=== PATIENT | male | born 1965 | race African-American/Black ===

== ENCOUNTER 2018-09-10 21:53 | Emergency (ER) | payer SELFPAY ==
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
== END 2018-09-10 23:40 | disposition home or self-care (01) ==
LOC: MW.ED 21:53
DX: M54.9 Dorsalgia, unspecified (principal); M54.2 Cervicalgia; R21 Rash and other nonspecific skin eruption; Z88.8 Allergy status to other drugs, medicaments and biological substances; V89.2XXA Person injured in unspecified motor-vehicle accident, traffic, initial encounter
CPT/HCPCS: 72040; 72040-26; 72100; 72100-26; 99283-25

== ENCOUNTER 2018-09-24 18:05 | Emergency (ER) | payer SELFPAY ==
--- NOTE | 2018-09-24 18:37 | EDM.PDOC ---
ED HPI GENERAL MEDICAL PROBLEM - General Chief Complaint: Skin Complaint Stated Complaint: ALLERGIC REACTION TO MEDICATION Time Seen by Provider: 09/24/18 18:25 Source of Information: Reports: Patient History Limitations: Reports: No Limitations - History of Present Illness INITIAL COMMENTS - FREE TEXT/NARRATIVE: HISTORY AND PHYSICAL: History of present illness: Patient is a 53-year-old male who presents to the emergency room with complaints of itching sensation to his scalp and bilateral forearms. He does have a few raised flesh-colored bumps which do not appear erythematous or infectious. Patient states he has not had any causative identifying factors or allergen exposure. Was seen in our emergency room on 09/10/18 for a different primary cause, but mentioned at that time he did have a rash. He was given a Medrol Dosepak. Patient completed this medication and felt that his arms had improved although still has itching to his scalp Review of systems: As per history of present illness and below otherwise all systems reviewed and negative. Past medical history: As per history of present illness and as reviewed below otherwise noncontributory. Surgical history: As per history of present illness and as reviewed below otherwise noncontributory. Social history: See social history for further information Family history: As per history of present illness and as reviewed below otherwise noncontributory. Physical exam: General: Well-developed and well-nourished 53-year-old -[place] male. Alert and oriented. Nontoxic appearing and in no acute distress. HEENT: Atraumatic, normocephalic, pupils equal and reactive bilaterally, negative for conjunctival pallor or scleral icterus, mucous membranes moist, TMs normal bilaterally, throat clear, neck supple, nontender, trachea midline. No drooling or trismus noted. No meningeal signs. No hot potato voice noted. Lungs: Clear to auscultation, breath sounds equal bilaterally, chest nontender. Heart: S1S2, regular rate and rhythm without overt murmur Abdomen: Soft, nondistended, nontender. Negative for masses. Negative for costovertebral tenderness. Skin: A few scattered raised flesh-colored bumps to his scalp. Superficial scratch king to bilateral forearms. Otherwise skin is intact, warm, dry. No lesions or rashes noted. Extremities: Atraumatic, moves all extremities per self without difficulty or deficits. Neurovascular unremarkable. Neuro: Awake, alert, oriented. Cranial nerves II through XII unremarkable. Cerebellum unremarkable. Motor and sensory unremarkable throughout. Exam nonfocal. Notes: Skin does not appear to be infectious or systemic. States this is been ongoing for several weeks. Use the Medrol Dosepak which improved his symptoms to his arms but continues to have itching sensation to his scalp. We discussed the need for follow-up care with dermatology or primary care for further evaluation , management and possible skin scraping/biopsy if warrented. Supportive care measures were reviewed and discussed. Voices understanding and is agreeable to plan of care. Denies any further questions or concerns at this time. Diagnostics: None Therapeutics: None Prescription: Atarax Impression: Atopic dermatitis Plan: 1. Please follow-up with your primary care provider or utility person as we discussed. 2. Use prescription as needed 3. Return to the ED as needed and as discussed. Definitive disposition and diagnosis as appropriate pending reevaluation and review of above. - Related Data Allergies Allergy/AdvReac Type Severity Reaction Status Date / Time naproxen sodium [From Aleve] Allergy Rash Verified 09/24/18 18:19 Home Meds: Home Meds hydrOXYzine pamoate [Vistaril] 25 mg PO Q8H PRN #20 cap 09/24/18 [Rx] Past Medical History - Past Health History Medical/Surgical History: Denies Medical/Surgical History Social & Family History - Family History Family Medical History: Noncontributory - Tobacco Use Smoking Status *Q: Never Smoker - Caffeine Use Caffeine Use: Reports: None - Recreational Drug Use Recreational Drug Use: No ED ROS GENERAL - Review of Systems Review Of Systems: ROS reveals no pertinent complaints other than HPI. ED EXAM, SKIN/RASH Exam: See Below (See dictation) Course - Vital Signs Last Recorded V/S: Last Vital Signs Temp 97.3 F 09/24/18 18:18 Pulse 86 09/24/18 18:18 Resp 18 09/24/18 18:18 BP 117/72 09/24/18 18:18 Pulse Ox 97 09/24/18 18:18 Departure - Departure Time of Disposition: 18:37 Disposition: Home, Self-Care 01 Clinical Impression: Atopic dermatitis Qualifiers: Atopic dermatitis type: unspecified Qualified Code(s): L20.9 - Atopic dermatitis, unspecified - Discharge Information Prescriptions: hydrOXYzine pamoate [Vistaril] 25 mg PO Q8H PRN #20 cap PRN Reason: Itching Instructions: Atopic Dermatitis Referrals: PCP,None [Primary Care Provider] - Forms: ED Department Discharge Additional Instructions: The following information is given to patients seen in the emergency department who are being discharged to home. This information is to outline your options for follow-up care. We provide all patients seen in our emergency department with a follow-up referral. The need for follow-up, as well as the timing and circumstances, are variable depending upon the specifics of your emergency department visit. If you don't have a primary care physician on staff, we will provide you with a referral. We always advise you to contact your personal physician following an emergency department visit to inform them of the circumstance of the visit and for follow-up with them and/or the need for any referrals to a consulting specialist. The emergency department will also refer you to a specialist when appropriate. This referral assures that you have the opportunity for follow-up care with a specialist. All of these measure are taken in an effort to provide you with optimal care, which includes your follow-up. Under all circumstances we always encourage you to contact your private physician who remains a resource for coordinating your care. When calling for follow-up care, please make the office aware that this follow-up is from your recent emergency room visit. If for any reason you are refused follow-up, please contact the [facility] Emergency Department at and asked to speak to the emergency department charge nurse. [facility] [address] [place] [id number] [facility] [address] [place] [address] 1. Please follow-up with your primary care provider or utility person as we discussed. 2. Use prescription as needed 3. Return to the ED as needed and as discussed.
== END 2018-09-24 18:50 | disposition home or self-care (01) ==
LOC: MW.ED 18:05
DX: L20.9 Atopic dermatitis, unspecified (principal)
CPT/HCPCS: 99282

== ENCOUNTER 2018-10-25 22:38 | Emergency (ER) | payer SELFPAY ==
--- NOTE | 2018-10-25 23:03 | EDM.PDOC ---
ED HPI GENERAL MEDICAL PROBLEM - General Chief Complaint: Skin Complaint Stated Complaint: PT HAS RASH Time Seen by Provider: 10/25/18 23:01 - History of Present Illness INITIAL COMMENTS - FREE TEXT/NARRATIVE: HISTORY AND PHYSICAL: History of present illness: Patient is 53-year-old black male presents with concern of cutaneous abscess to his left forehead has been worse over the last several days he denies fever chills nausea vomiting or other complaints Review of systems: As per history of present illness and below otherwise all systems reviewed and negative. Past medical history: As per history of present illness and as reviewed below otherwise noncontributory. Surgical history: As per history of present illness and as reviewed below otherwise noncontributory. Social history: No reported history of drug or alcohol abuse. Family history: As per history of present illness and as reviewed below otherwise noncontributory. Physical exam: HEENT: Cutaneous abscess approximately 1/2 cm diameter left forehead noted there is fluctuance no significant surrounding erythema or evidence of cellulitis, normocephalic, pupils reactive, negative for conjunctival pallor or scleral icterus, mucous membranes moist, throat clear, neck supple, nontender, trachea midline. Lungs: Clear to auscultation, breath sounds equal bilaterally, chest nontender. Heart: S1S2, regular, negative for clicks, rubs, or JVD. Abdomen: Soft, nondistended, nontender. Negative for masses or hepatosplenomegaly. Negative for costovertebral tenderness. Pelvis: Stable nontender. Genitourinary: Deferred. Rectal: Deferred. Extremities: Atraumatic, negative for cords or calf pain. Neurovascular unremarkable. Neuro: Awake, alert, oriented. Cranial nerves II through XII unremarkable. Cerebellum unremarkable. Motor and sensory unremarkable throughout. Exam nonfocal. Diagnostics: None Therapeutics: #1 incision and drainage with 11 blade accomplished bacitracin dressing Impression: #1 cutaneous abscess of left forehead status post incision and drainage Definitive disposition and diagnosis as appropriate pending reevaluation and review of above. head Pain Score (Numeric/FACES): 7 - Related Data Allergies Allergy/AdvReac Type Severity Reaction Status Date / Time naproxen sodium [From Aleve] Allergy Rash Verified 10/25/18 22:53 Home Meds: Home Meds . [No Known Home Meds] 10/25/18 [History] Past Medical History - Past Health History Medical/Surgical History: Denies Medical/Surgical History Social & Family History - Family History Family Medical History: Noncontributory - Tobacco Use Smoking Status *Q: Never Smoker - Caffeine Use Caffeine Use: Reports: None - Recreational Drug Use Recreational Drug Use: No ED ROS GENERAL - Review of Systems Review Of Systems: ROS reveals no pertinent complaints other than HPI. ED EXAM, SKIN/RASH Exam: See Below (See dictation) Course - Vital Signs Last Recorded V/S: Last Vital Signs Temp 36.4 C 10/25/18 22:38 Pulse 74 10/25/18 22:38 Resp 16 10/25/18 22:38 BP 128/87 10/25/18 22:38 Pulse Ox 95 10/25/18 22:38 Departure - Departure Time of Disposition: 23:02 Disposition: Home, Self-Care 01 Condition: Good Clinical Impression: Cutaneous abscess - Discharge Information Referrals: PCP,None [Primary Care Provider] - Additional Instructions: The following information is given to patients seen in the emergency department who are being discharged to home. This information is to outline your options for follow-up care. We provide all patients seen in our emergency department with a follow-up referral. The need for follow-up, as well as the timing and circumstances, are variable depending upon the specifics of your emergency department visit. If you don't have a primary care physician on staff, we will provide you with a referral. We always advise you to contact your personal physician following an emergency department visit to inform them of the circumstance of the visit and for follow-up with them and/or the need for any referrals to a consulting specialist. The emergency department will also refer you to a specialist when appropriate. This referral assures that you have the opportunity for followup care with a specialist. All of these measure are taken in an effort to provide you with optimal care, which includes your followup. Under all circumstances we always encourage you to contact your private physician who remains a resource for coordinating your care. When calling for followup care, please make the office aware that this follow-up is from your recent emergency room visit. If for any reason you are refused follow-up, please contact the [facility] emergency department at and asked to speak to the emergency department charge nurse. [facility] [address] [place] [id number] Dressing change twice a day as discussed follow-up clinic above call to schedule appointment return as needed as discussed
== END 2018-10-25 23:15 | disposition home or self-care (01) ==
LOC: MW.ED 22:38
DX: L02.01 Cutaneous abscess of face (principal); Z88.6 Allergy status to analgesic agent
CPT/HCPCS: 99282

== ENCOUNTER 2022-03-25 16:49 | Emergency (ER) | payer SELFPAY ==
[2022-03-25 19:21] LABS: CORONAVIRUS COVID-19 NAA NEGATIVE (NEGATIVE); INFLUENZA A NAA NEGATIVE (NEGATIVE); INFLUENZA B NAA NEGATIVE (NEGATIVE); RESPIRATORY SYNCYTIAL VIR NAA NEGATIVE (NEGATIVE)
[2022-03-25 19:35] LABS: CARBON DIOXIDE,CO2 28.5 mmol/L (21.0-32.0); POTASSIUM,K 4.4 mmol/L (3.5-5.1)
== END 2022-03-25 20:38 | disposition home or self-care (01) ==
LOC: MW.ED 16:49
DX: M79.605 Pain in left leg (principal); M79.10 Myalgia, unspecified site; Z88.8 Allergy status to other drugs, medicaments and biological substances; Z20.822 Contact with and (suspected) exposure to COVID-19
CPT/HCPCS: 0241U; 36415; 80053; 82550; 83735; 85025; 93971-26-LT; 93971-LT; 99283; 99284

== ENCOUNTER 2022-05-03 20:12 | Inpatient (IN) | payer SELFPAY ==
[2022-05-03] MEDS ORDERED: Sodium Chloride 0.9% 2.5 ML Syringe FLUSH PRN (21:41)
[2022-05-03] MEDS ORDERED: Ondansetron 4 MG/2 ML SDV IVPUSH ONE (21:41)
[2022-05-03] MEDS ORDERED: Sodium Chloride 0.9% 10 ML Syringe FLUSH PRN (21:41)
[2022-05-03] MEDS ORDERED: Pantoprazole 40 MG in Sodium Chloride 0.9% 10 ML IVPUSH ONE (21:43)
[2022-05-03 23:05] LABS: CARBON DIOXIDE,CO2 26.4 mmol/L (21.0-32.0); POTASSIUM,K 4.4 mmol/L (3.5-5.1)
[2022-05-03] MEDS ORDERED: Iopamidol 755 MG/ML 500 ML Multipack Bottle IVPUSH ONE (23:34)
[2022-05-04] MEDS ORDERED: Acetaminophen 325 MG Tab PO PRN (03:18)
[2022-05-04] MEDS ORDERED: Sodium Chloride 0.9% 1,000 ML IV SCH (03:30)
[2022-05-04 08:16] LABS: CARBON DIOXIDE,CO2 26.2 mmol/L (21.0-32.0)
[2022-05-04] MEDS: Pantoprazole 40 MG Tab.CR PO SCH (08:55)
[2022-05-04] MEDS: Acetaminophen 500 MG Tab PO PRN (10:07)
[2022-05-04] MEDS ORDERED: Albuterol/Ipratropium 3.0-0.5 MG/3 ML Neb Soln NEB PRN (10:40)
[2022-05-04] MEDS ORDERED: Sodium Chloride 0.9% 2.5 ML Syringe FLUSH PRN (10:40)
[2022-05-04] MEDS ORDERED: Docusate Sodium 100 MG Cap PO PRN (10:40)
[2022-05-04] MEDS ORDERED: Ondansetron 4 MG/2 ML SDV IVPUSH PRN (10:40)
[2022-05-04] MEDS ORDERED: Sodium Chloride 0.9% 10 ML Syringe FLUSH PRN (10:40)
[2022-05-04] MEDS: cefTRIAXone 1 GM in Sodium Chloride 0.9% 50 ML IV SCH (11:43)
[2022-05-04] MEDS: Azithromycin 500 MG in Sodium Chloride 0.9% 250 ML IV SCH (12:51)
[2022-05-04] MEDS: Sodium Chloride 0.9% 1,000 ML IV SCH ×2 (12:51→23:09)
[2022-05-04 14:15] LABS: CARBON DIOXIDE,CO2 28.2 mmol/L (21.0-32.0); POTASSIUM,K 4.1 mmol/L (3.5-5.1)
[2022-05-04 21:16] LABS: CARBON DIOXIDE,CO2 23.9 mmol/L (21.0-32.0)
[2022-05-05 05:07] LABS: BORDETELLA PARAPERT IS1001 Not Detected (Not Detected)
[2022-05-05 07:33] LABS: CARBON DIOXIDE,CO2 26.7 mmol/L (21.0-32.0); POTASSIUM,K 4.3 mmol/L (3.5-5.1)
[2022-05-05] MEDS: Acetaminophen 500 MG Tab PO PRN (08:00)
[2022-05-05] MEDS: Pantoprazole 40 MG Tab.CR PO SCH (09:00)
[2022-05-05] MEDS: Sodium Chloride 0.9% 1,000 ML IV SCH (09:01)
[2022-05-05] MEDS: cefTRIAXone 1 GM in Sodium Chloride 0.9% 50 ML IV SCH (11:52)
[2022-05-05] MEDS: Azithromycin 500 MG in Sodium Chloride 0.9% 250 ML IV SCH ×2 (12:06→12:27)
[2022-05-06] MEDS: Acetaminophen 500 MG Tab PO PRN (03:58)
[2022-05-06 06:30] LABS: CARBON DIOXIDE,CO2 25.8 mmol/L (21.0-32.0); POTASSIUM,K 3.8 mmol/L (3.5-5.1)
[2022-05-06] MEDS: Pantoprazole 40 MG Tab.CR PO SCH (08:25)
[2022-05-06] MEDS ORDERED: Cefepime 2 GM in Premix Bag 1 BAG IV SCH (10:15)
[2022-05-06] MEDS: Cefepime 2 GM in Sodium Chloride 0.9% 50 ML IV SCH ×2 (10:58→17:44)
[2022-05-06] MEDS: Azithromycin 500 MG in Sodium Chloride 0.9% 250 ML IV SCH (11:57)
[2022-05-06] MEDS: [UNRECOGNIZED DRUG - OTHER] PO SCH ×2 (12:10→14:12)
[2022-05-07] MEDS: Cefepime 2 GM in Sodium Chloride 0.9% 50 ML IV SCH ×3 (02:05→17:29)
[2022-05-07 06:48] LABS: CARBON DIOXIDE,CO2 25.9 mmol/L (21.0-32.0); POTASSIUM,K 3.8 mmol/L (3.5-5.1)
[2022-05-07] MEDS: Pantoprazole 40 MG Tab.CR PO SCH (09:45)
[2022-05-07] MEDS: [UNRECOGNIZED DRUG - OTHER] PO SCH (09:46)
[2022-05-07] MEDS: Azithromycin 500 MG in Sodium Chloride 0.9% 250 ML IV SCH (11:16)
[2022-05-07 12:21] LABS: CARBON DIOXIDE,CO2 26.3 mmol/L (21.0-32.0); POTASSIUM,K 3.4 mmol/L (3.5-5.1)
[2022-05-07] MEDS ORDERED: diphenhydrAMINE 25 MG Cap PO PRN (20:34)
[2022-05-08] MEDS: Cefepime 2 GM in Sodium Chloride 0.9% 50 ML IV SCH (01:26)
[2022-05-08 06:45] LABS: CARBON DIOXIDE,CO2 27.6 mmol/L (21.0-32.0); POTASSIUM,K 4.1 mmol/L (3.5-5.1)
[2022-05-08] MEDS: Pantoprazole 40 MG Tab.CR PO SCH (09:22)
[2022-05-08] MEDS: [UNRECOGNIZED DRUG - OTHER] PO SCH (09:22)
== END 2022-05-08 11:35 | disposition home or self-care (01) | DRG 975 ==
LOC: MW.ED 20:12 → MW.MS 05-04 03:12 → OBSVTOIN 05-06 10:12 → MW.MS 05-06 14:33
PROVIDERS: ADMIT Internal Medicine; ATTEND Internal Medicine
DX: J18.9 Pneumonia, unspecified organism (principal); B20 Human immunodeficiency virus [HIV] disease; E87.1 Hypo-osmolality and hyponatremia; J98.11 Atelectasis; Z20.822 Contact with and (suspected) exposure to COVID-19; E86.0 Dehydration; R56.9 Unspecified convulsions; Z88.8 Allergy status to other drugs, medicaments and biological substances; Z91.89 Other specified personal risk factors, not elsewhere classified; Z79.899 Other long term (current) drug therapy
CPT/HCPCS: 36415; 71045; 71045-26; 74177; 74177-26; 80048; 80053; 81001; 82378; 82607; 82746; 83615; 83690; 83735; 83935; 84300; 85007; 85025; 85027; 85045; 87040; 87389; 87486; 87581; 87633; 87798; 96361; 96365; 96366; 96367; 96374; 96375; 99285-25; A9270-GY; C9113; G0103; G0378; J0456; J0692; J0696; J1447; J2405; J3490; J7030; J7050; Q9967; U0002

== ENCOUNTER 2022-07-17 09:25 | Inpatient (IN) | payer OTHER ==
[2022-07-17] MEDS ORDERED: Sodium Chloride 0.9% 1,000 ML IV SCH (10:15)
[2022-07-17] MEDS ORDERED: Piperacillin/Tazobactam 4.5 GM in Sodium Chloride 0.9% 100 ML IV ONE (10:31)
[2022-07-17 10:36] LABS: HEMATOCRIT 30.6 % (38.0-50.0); HEMOGLOBIN 10.9 g/dL (13.0-17.0); MEAN CORPUSCULAR HEMOGLOBIN 26.9 pg (27.0-32.0); MEAN CORPUSCULAR HGB CONC 35.6 g/dL (31.0-37.0); MEAN CORPUSCULAR VOLUME 75.6 fL (80.0-98.0); NRBC ABSOLUTE 0 K/uL; PLATELET COUNT,PLT 57 K/uL (150-400); RED BLOOD CELL COUNT 4.05 M/uL (4.50-5.90); WHITE BLOOD CELL COUNT,WBC 3.57 K/uL (4.0-11.0)
[2022-07-17 10:41] LABS: INR 1.12 (0.86-1.11)
[2022-07-17] MEDS ORDERED: VANCOmycin 1.5 GM/300 ML 1.5 GM in Premix Bag 1 BAG IV ONE (10:45)
[2022-07-17] MEDS ORDERED: Lactated Ringers 1,000 ML IV SCH (10:45)
[2022-07-17 10:54] LABS: BAND ABSOLUTE MAN 0.4; BAND PERCENT MAN 11 %; LYMPHOCYTES ABSOLUTE MAN 0.4 (0.6-2.4); LYMPHOCYTES PERCENT MAN 12 % (16.0-40.0); SEG NEUTROPHILS PERCENT MAN 55 % (48.0-80.0)
[2022-07-17 10:55] LABS: METAMYELOCYTE ABSOLUTE MAN 0.1; METAMYELOCYTE PERCENT MAN 2 %; MONOCYTES ABSOLUTE MAN 0.7 (0.0-0.8); MONOCYTES PERCENT MAN 19 % (0.0-15.0); MYELOCYTE ABSOLUTE MAN 0; MYELOCYTE PERCENT MAN 1 %
[2022-07-17 10:58] LABS: A/G RATIO 0.4 (0.9-1.6); ALANINE AMINOTRANSFERASE,ALT 130 IU/L (14-63); ALBUMIN 1.8 g/dL (3.4-5.0); ALKALINE PHOSPHATASE 356 U/L (46-116); ASPARTATE AMNIOTRANSFERASE,AST 304 IU/L (15-37); BILIRUBIN TOTAL 1.5 mg/dL (0.2-1.0); BLOOD UREA NITROGEN,BUN 25 mg/dL (7.0-18.0); CALCIUM 8.1 mg/dL (8.5-10.1); CHLORIDE,CL 93 mmol/L (98-107); CREATININE 1.9 mg/dL (0.8-1.3); EST CRCL DRUG DOSING (CG) 44.82 mL/min; ETHANOL BLOOD MEDICAL <3 mg/dL; GLUCOSE RANDOM 133 mg/dL (74-106); LIPASE 310 U/L (73-393); MAGNESIUM 2.2 mg/dL (1.8-2.4); POTASSIUM,K 4.2 mmol/L (3.5-5.1); PROTEIN TOTAL,TP 6.9 g/dL (6.4-8.2); SODIUM,NA 127 mmol/L (136-148)
[2022-07-17 11:02] LABS: COLOR,URINE YELLOW; GLUCOSE,URINE NEGATIVE (NEGATIVE); KETONES,URINE NEGATIVE (NEGATIVE); LEUKOCYTE ESTERASE,URINE NEGATIVE (NEGATIVE); NITRITE,URINE NEGATIVE (NEGATIVE); OCCULT BLOOD,URINE LARGE (NEGATIVE); PH,URINE 6.5 (5.0-8.0); PROTEIN,URINE >=300 mg/dL (NEGATIVE)
[2022-07-17 11:03] LABS: LACTIC ACID 1.7 mmol/L (0.4-2.0)
[2022-07-17 11:04] LABS: ESTIMATED GFR 41 mL/min (>60)
[2022-07-17 11:07] LABS: APPEARANCE,URINE HAZY; BILIRUBIN,URINE MODERATE (NEGATIVE)
[2022-07-17 11:12] LABS: AMORPHOUS SEDIMENT,URINE FEW (NEGATIVE); BACTERIA,URINE FEW (NEGATIVE); EPITHELIAL CELLS,URINE RARE (NONE-FEW); HYALINE CASTS,URINE 0-2 (0-2/LPF); WBC,URINE 0-1 (0-5/HPF)
[2022-07-17 11:13] LABS: AMPHETAMINES SCREEN, URINE NEGATIVE (CUTOFF=500); BARBITURATE SCREEN,URINE NEGATIVE (CUTOFF=200); BENZODIAZEPINES SCREEN,URINE NEGATIVE (CUTOFF=150); BUPRENORPHINE SCREEN,URINE NEGATIVE (CUTOFF=10); METHADONE SCREEN, URINE NEGATIVE (CUTOFF=200); METHAMPHETAMINES SCREEN, URINE NEGATIVE (CUTOFF=500); OXYCODONE SCREEN,URINE NEGATIVE (CUT0FF=100); PCP SCREEN,URINE NEGATIVE (CUTOFF=25); PROPOXYPHENE SCREEN,URINE NEGATIVE (CUTOFF=300); THC SCREEN,URINE 20 NG/ML NEGATIVE (CUTOFF=50)
[2022-07-17 13:07] LABS: POTASSIUM,URINE RANDOM 34.9 mmol/L
[2022-07-17] MEDS ORDERED: Ondansetron 4 MG/2 ML SDV IVPUSH PRN (13:59)
[2022-07-17] MEDS ORDERED: Sodium Chloride 0.9% 2.5 ML Syringe FLUSH PRN (13:59)
[2022-07-17] MEDS ORDERED: Albuterol 0.083% 2.5 MG/3 ML Neb Soln NEB PRN (13:59)
[2022-07-17] MEDS ORDERED: Sodium Chloride 0.9% 10 ML Syringe FLUSH PRN (13:59)
[2022-07-17] MEDS ORDERED: Docusate Sodium 100 MG Cap PO PRN (13:59)
[2022-07-17] MEDS ORDERED: Sulfamethoxazole/Trimethoprim 200-40 MG/5 ML Susp ML (473 ML Bottle) PO SCH (14:30)
[2022-07-17] MEDS ORDERED: Iopamidol 755 MG/ML 500 ML Multipack Bottle IVPUSH ONE (14:53)
[2022-07-17] MEDS ORDERED: Pantoprazole 40 MG in Sodium Chloride 0.9% 10 ML IVPUSH ONE (15:00)
[2022-07-17] MEDS: Sodium Chloride 0.9% 1,000 ML IV SCH (15:42)
[2022-07-17] MEDS: Acyclovir 200 MG Cap PO SCH ×2 (15:45→23:05)
[2022-07-17] MEDS: Sulfamethoxazole/Trimethoprim 800-160 MG Tab PO SCH ×2 (15:45→23:05)
[2022-07-17] MEDS: cefTRIAXone 1 GM in Sodium Chloride 0.9% 50 ML IV SCH (15:46)
[2022-07-17] MEDS: Azithromycin 500 MG in Sodium Chloride 0.9% 250 ML IV SCH (15:46)
[2022-07-18] MEDS: Sodium Chloride 0.9% 1,000 ML IV SCH ×4 (00:48→21:05)
[2022-07-18] MEDS: Acetaminophen 325 MG Tab PO PRN (02:09)
[2022-07-18] MEDS: Sulfamethoxazole/Trimethoprim 800-160 MG Tab PO SCH ×3 (05:58→21:06)
[2022-07-18] MEDS: Acyclovir 200 MG Cap PO SCH ×3 (05:59→21:05)
[2022-07-18 06:43] LABS: HEMATOCRIT 25.9 % (38.0-50.0); HEMOGLOBIN 9.2 g/dL (13.0-17.0); MEAN CORPUSCULAR HEMOGLOBIN 27.2 pg (27.0-32.0); MEAN CORPUSCULAR HGB CONC 35.5 g/dL (31.0-37.0); MEAN CORPUSCULAR VOLUME 76.6 fL (80.0-98.0); NRBC ABSOLUTE 0 K/uL; PLATELET COUNT,PLT 41 K/uL (150-400); RED BLOOD CELL COUNT 3.38 M/uL (4.50-5.90); WHITE BLOOD CELL COUNT,WBC 2.27 K/uL (4.0-11.0)
[2022-07-18] MEDS: Pantoprazole 40 MG Tab.CR PO SCH (06:57)
[2022-07-18 07:04] LABS: BAND ABSOLUTE MAN 0; BAND PERCENT MAN 2 %; LYMPHOCYTES ABSOLUTE MAN 0.5 (0.6-2.4); LYMPHOCYTES PERCENT MAN 20 % (16.0-40.0); METAMYELOCYTE ABSOLUTE MAN 0; METAMYELOCYTE PERCENT MAN 1 %; MONOCYTES ABSOLUTE MAN 0.2 (0.0-0.8); MONOCYTES PERCENT MAN 11 % (0.0-15.0); MYELOCYTE ABSOLUTE MAN 0; MYELOCYTE PERCENT MAN 1 %; SEG NEUTROPHILS ABSOLUTE MAN 1.5 (1.4-5.7); SEG NEUTROPHILS PERCENT MAN 65 % (48.0-80.0)
[2022-07-18 07:15] LABS: ALBUMIN 1.5 g/dL (3.4-5.0); BILIRUBIN TOTAL 1.3 mg/dL (0.2-1.0); CALCIUM 7.4 mg/dL (8.5-10.1); CARBON DIOXIDE,CO2 22.1 mmol/L (21.0-32.0); EST CRCL DRUG DOSING (CG) 38.56 mL/min; MAGNESIUM 2.2 mg/dL (1.8-2.4); PHOSPHORUS 4.3 mg/dL (2.6-4.7); POTASSIUM,K 3.7 mmol/L (3.5-5.1); PROTEIN TOTAL,TP 5.8 g/dL (6.4-8.2)
[2022-07-18 07:16] LABS: A/G RATIO 0.4 (0.9-1.6)
[2022-07-18] MEDS ORDERED: Insulin Glargine,Hum.Rec.Anlog 100 UNIT/ML 3 ML Pen SUBCUT SCH (11:00)
[2022-07-18] MEDS ORDERED: BIKTARVY PO SCH (11:30)
[2022-07-18] MEDS: Azithromycin 500 MG in Sodium Chloride 0.9% 250 ML IV SCH (14:14)
[2022-07-18] MEDS: cefTRIAXone 1 GM in Sodium Chloride 0.9% 50 ML IV SCH (19:54)
[2022-07-19] MEDS: Sulfamethoxazole/Trimethoprim 800-160 MG Tab PO SCH ×3 (05:23→21:33)
[2022-07-19] MEDS: Acyclovir 200 MG Cap PO SCH ×3 (05:23→21:33)
[2022-07-19] MEDS: Sodium Chloride 0.9% 1,000 ML IV SCH ×2 (05:23→18:10)
[2022-07-19] MEDS: Pantoprazole 40 MG Tab.CR PO SCH ×2 (06:02→06:45)
[2022-07-19 06:49] LABS: BASOPHILS PERCENT AUTO 0.4 % (0.0-1.5); EOSINOPHILS PERCENT AUTO 0.4 % (0.0-7.0); HEMATOCRIT 26.2 % (38.0-50.0); HEMOGLOBIN 9.2 g/dL (13.0-17.0); LYMPHOCYTES ABSOLUTE AUTO 0.5 K/uL (0.6-2.4); LYMPHOCYTES PERCENT AUTO 19.9 % (16.0-40.0); MEAN CORPUSCULAR HEMOGLOBIN 26.1 pg (27.0-32.0); MEAN CORPUSCULAR HGB CONC 35.1 g/dL (31.0-37.0); MEAN CORPUSCULAR VOLUME 74.4 fL (80.0-98.0); MONOCYTES ABSOLUTE AUTO 0.2 K/uL (0.0-0.8); NEUTROPHILS ABSOLUTE AUTO 1.6 K/uL (1.4-5.7); NEUTROPHILS PERCENT AUTO 69.3 % (48.0-80.0); NRBC ABSOLUTE 0 K/uL; PLATELET COUNT,PLT 29 K/uL (150-400); RED BLOOD CELL COUNT 3.52 M/uL (4.50-5.90); WHITE BLOOD CELL COUNT,WBC 2.31 K/uL (4.0-11.0)
[2022-07-19 07:04] LABS: CALCIUM 7.7 mg/dL (8.5-10.1); CARBON DIOXIDE,CO2 19.9 mmol/L (21.0-32.0); CREATININE 1.7 mg/dL (0.8-1.3); EST CRCL DRUG DOSING (CG) 45.36 mL/min; POTASSIUM,K 4.1 mmol/L (3.5-5.1)
[2022-07-19] MEDS ORDERED: VANCOmycin 1.5 GM/300 ML 1.5 GM in Premix Bag 1 BAG IV SCH (11:00)
[2022-07-19] MEDS ORDERED: Diphenhydramine/Lidocaine/MagAl/Simethicone 119 ML Bottle PO PRN (11:08)
[2022-07-19] MEDS: Acetaminophen 325 MG Tab PO PRN (11:42)
[2022-07-19] MEDS: Azithromycin 500 MG in Sodium Chloride 0.9% 250 ML IV SCH (14:20)
[2022-07-19] MEDS: cefTRIAXone 1 GM in Sodium Chloride 0.9% 50 ML IV SCH (15:52)
[2022-07-20] MEDS: Sodium Chloride 0.9% 1,000 ML IV SCH ×2 (02:56→07:59)
[2022-07-20] MEDS: Sulfamethoxazole/Trimethoprim 800-160 MG Tab PO SCH (06:43)
[2022-07-20] MEDS: Pantoprazole 40 MG Tab.CR PO SCH (06:43)
[2022-07-20] MEDS: Acyclovir 200 MG Cap PO SCH (06:43)
[2022-07-20 08:19] LABS: A/G RATIO 0.3 (0.9-1.6); ALBUMIN 1.3 g/dL (3.4-5.0); BILIRUBIN TOTAL 0.4 mg/dL (0.2-1.0); CALCIUM 7.3 mg/dL (8.5-10.1); CARBON DIOXIDE,CO2 16.7 mmol/L (21.0-32.0); CREATININE 1.6 mg/dL (0.8-1.3); EST CRCL DRUG DOSING (CG) 48.2 mL/min; POTASSIUM,K 3.9 mmol/L (3.5-5.1); PROTEIN TOTAL,TP 5.3 g/dL (6.4-8.2)
[2022-07-20 08:42] LABS: HEMATOCRIT 24.4 % (38.0-50.0); HEMOGLOBIN 8.6 g/dL (13.0-17.0); MEAN CORPUSCULAR HEMOGLOBIN 26.1 pg (27.0-32.0); MEAN CORPUSCULAR HGB CONC 35.2 g/dL (31.0-37.0); MEAN CORPUSCULAR VOLUME 73.9 fL (80.0-98.0); NRBC ABSOLUTE 0 K/uL; WHITE BLOOD CELL COUNT,WBC 2.12 K/uL (4.0-11.0)
[2022-07-20 09:12] LABS: PLATELET COUNT,PLT 28 K/uL (150-400)
[2022-07-20 09:17] LABS: BAND ABSOLUTE MAN 0.1; BAND PERCENT MAN 6 %; LYMPHOCYTES ABSOLUTE MAN 0.1 (0.6-2.4); LYMPHOCYTES PERCENT MAN 6 % (16.0-40.0); METAMYELOCYTE ABSOLUTE MAN 0.1; METAMYELOCYTE PERCENT MAN 3 %; MONOCYTES ABSOLUTE MAN 0.6 (0.0-0.8); MONOCYTES PERCENT MAN 26 % (0.0-15.0); MYELOCYTE ABSOLUTE MAN 0; MYELOCYTE PERCENT MAN 1 %; SEG NEUTROPHILS ABSOLUTE MAN 1.2 (1.4-5.7); SEG NEUTROPHILS PERCENT MAN 58 % (48.0-80.0)
[2022-07-20 09:18] LABS: PLATELET COUNT ESTIMATE DECREASED
== END 2022-07-20 11:00 | DRG 974 ==
LOC: MW.ED 09:25 → MW.MS 12:51
PROVIDERS: ADMIT Internal Medicine; ATTEND Internal Medicine
DX: J18.9 Pneumonia, unspecified organism (principal); E43 Unspecified severe protein-calorie malnutrition; B20 Human immunodeficiency virus [HIV] disease; B00.2 Herpesviral gingivostomatitis and pharyngotonsillitis; N17.9 Acute kidney failure, unspecified; E87.1 Hypo-osmolality and hyponatremia; J01.90 Acute sinusitis, unspecified; K80.20 Calculus of gallbladder without cholecystitis without obstruction; Z20.822 Contact with and (suspected) exposure to COVID-19; Z79.899 Other long term (current) drug therapy; Z98.890 Other specified postprocedural states; Z56.0 Unemployment, unspecified; Z68.25 Body mass index [BMI] 25.0-25.9, adult
CPT/HCPCS: 36415; 70450; 70450-26; 71045; 71045-26; 74178; 74178-26; 76705; 76705-26; 80048; 80053; 80202; 80305-QW; 80307; 81001; 82140; 82436; 83605; 83690; 83735; 84100; 84133; 84300; 84443; 84484; 85025; 85610; 86308; 86850; 86900; 86901; 87040; 87070; 87077; 87186; 87205; 87899; 93005; 93010; 96361; 96365; 96367; 99284; 99285-25; A9270-GY; C9113; J0456; J0696; J2543; J3370; J3490; J7030; J7050; J7120; Q9967; U0002

== ENCOUNTER 2022-08-17 15:02 | Inpatient (IN) | payer MEDICAID ==
[2022-08-17] MEDS ORDERED: Sodium Chloride 0.9% 10 ML Syringe FLUSH PRN (15:05)
[2022-08-17] MEDS ORDERED: Sodium Chloride 0.9% 1,000 ML IV ONE (15:05)
[2022-08-17] MEDS ORDERED: Sodium Chloride 0.9% 2.5 ML Syringe FLUSH PRN (15:05)
[2022-08-17] MEDS ORDERED: Cefepime 2 GM Vial IVPUSH ONE (15:27)
[2022-08-17] MEDS ORDERED: Water For Injection, Sterile 20 ML ONE (15:55)
[2022-08-17 15:56] LABS: HEMOGLOBIN 8.1 g/dL (13.0-17.0); LYMPHOCYTES ABSOLUTE AUTO 0.4 K/uL (0.6-2.4); LYMPHOCYTES PERCENT AUTO 17.3 % (16.0-40.0); MEAN CORPUSCULAR HGB CONC 33.8 g/dL (31.0-37.0); MEAN CORPUSCULAR VOLUME 77.2 fL (80.0-98.0); MONOCYTES ABSOLUTE AUTO 0.3 K/uL (0.0-0.8); MONOCYTES PERCENT AUTO 12.8 % (0.0-15.0); NEUTROPHILS ABSOLUTE AUTO 1.6 K/uL (1.4-5.7); NEUTROPHILS PERCENT AUTO 69.9 % (48.0-80.0); NRBC ABSOLUTE 0 K/uL; RED BLOOD CELL COUNT 3.11 M/uL (4.50-5.90); WHITE BLOOD CELL COUNT,WBC 2.26 K/uL (4.0-11.0)
[2022-08-17 16:10] LABS: PLATELET COUNT,PLT 120 K/uL (150-400)
[2022-08-17 16:13] LABS: INR 1.31 (0.86-1.11); PTT,PARTIAL THROMBOPLSTIN TIME 36.4 SEC (23.9-30.7)
[2022-08-17 16:15] LABS: A/G RATIO 0.4 (0.9-1.6); ALANINE AMINOTRANSFERASE,ALT 137 IU/L (14-63); ALBUMIN 2.3 g/dL (3.4-5.0); ALKALINE PHOSPHATASE 677 U/L (46-116); ASPARTATE AMNIOTRANSFERASE,AST 130 IU/L (15-37); BILIRUBIN TOTAL 1.1 mg/dL (0.2-1.0); BLOOD UREA NITROGEN,BUN 15 mg/dL (7.0-18.0); CALCIUM 8.5 mg/dL (8.5-10.1); CARBON DIOXIDE,CO2 24.1 mmol/L (21.0-32.0); CHLORIDE,CL 90 mmol/L (98-107); CREATININE 1.4 mg/dL (0.8-1.3); GLUCOSE RANDOM 116 mg/dL (74-106); LIPASE 200 U/L (73-393); POTASSIUM,K 3.9 mmol/L (3.5-5.1); PROTEIN TOTAL,TP 8.1 g/dL (6.4-8.2); SODIUM,NA 125 mmol/L (136-148)
[2022-08-17 16:17] LABS: ESTIMATED GFR 59 mL/min (>60)
[2022-08-17 16:24] LABS: LACTIC ACID 1.1 mmol/L (0.4-2.0)
[2022-08-17 17:09] LABS: APPEARANCE,URINE CLEAR; COLOR,URINE DARK YELLOW; GLUCOSE,URINE NEGATIVE (NEGATIVE); KETONES,URINE NEGATIVE (NEGATIVE); LEUKOCYTE ESTERASE,URINE NEGATIVE (NEGATIVE); NITRITE,URINE NEGATIVE (NEGATIVE); OCCULT BLOOD,URINE TRACE-INTACT (NEGATIVE); PH,URINE 6.5 (5.0-8.0); PROTEIN,URINE 100 mg/dL (NEGATIVE)
[2022-08-17 17:11] LABS: BILIRUBIN,URINE SMALL (NEGATIVE)
[2022-08-17] MEDS ORDERED: Iopamidol 755 MG/ML 200 ML Multipack Bottle IVPUSH ONE (17:29)
[2022-08-17] MEDS ORDERED: Iopamidol 755 Mg/ML 100 ML Bottle IVPUSH ONE (17:33)
[2022-08-17 17:40] LABS: BACTERIA,URINE NOT SEEN (NEGATIVE); EPITHELIAL CELLS,URINE RARE (NONE-FEW); WBC,URINE 0-1 (0-5/HPF)
[2022-08-17 23:02] LABS: CALCIUM 7.8 mg/dL (8.5-10.1); CARBON DIOXIDE,CO2 24.2 mmol/L (21.0-32.0); CREATININE 1.1 mg/dL (0.8-1.3); EST CRCL DRUG DOSING (CG) 73.61 mL/min; POTASSIUM,K 3.8 mmol/L (3.5-5.1)
[2022-08-18] MEDS: metroNIDAZOLE/Normal Saline 500 MG in Premix Bag 1 BAG IV SCH ×4 (00:34→21:50)
[2022-08-18] MEDS: Ciprofloxacin in D5W 400 MG in Premix Bag 1 BAG IV SCH ×6 (00:35→22:50)
[2022-08-18] MEDS: Sodium Chloride 0.9% 1,000 ML IV SCH ×2 (00:36→15:48)
[2022-08-18 06:23] LABS: HEMATOCRIT 19.6 % (38.0-50.0); MEAN CORPUSCULAR HEMOGLOBIN 27.3 pg (27.0-32.0); MEAN CORPUSCULAR HGB CONC 35.7 g/dL (31.0-37.0); MEAN CORPUSCULAR VOLUME 76.6 fL (80.0-98.0); PLATELET COUNT,PLT 100 K/uL (150-400); RED BLOOD CELL COUNT 2.56 M/uL (4.50-5.90); WHITE BLOOD CELL COUNT,WBC 1.76 K/uL (4.0-11.0)
[2022-08-18 06:49] LABS: ALBUMIN 1.6 g/dL (3.4-5.0); BILIRUBIN TOTAL 0.7 mg/dL (0.2-1.0); CALCIUM 7.5 mg/dL (8.5-10.1); CREATININE 0.9 mg/dL (0.8-1.3); EST CRCL DRUG DOSING (CG) 89.96 mL/min; POTASSIUM,K 3.9 mmol/L (3.5-5.1); PROTEIN TOTAL,TP 6.2 g/dL (6.4-8.2)
[2022-08-18 06:54] LABS: A/G RATIO 0.4 (0.9-1.6)
[2022-08-18 07:32] LABS: BAND ABSOLUTE MAN 0.2; BAND PERCENT MAN 14 %; LYMPHOCYTES ABSOLUTE MAN 0.3 (0.6-2.4); LYMPHOCYTES PERCENT MAN 17 % (16.0-40.0); MONOCYTES ABSOLUTE MAN 0.4 (0.0-0.8); MONOCYTES PERCENT MAN 20 % (0.0-15.0); SEG NEUTROPHILS ABSOLUTE MAN 0.9 (1.4-5.7); SEG NEUTROPHILS PERCENT MAN 49 % (48.0-80.0)
[2022-08-18] MEDS ORDERED: Sodium Chloride 0.9% 10 ML Syringe FLUSH PRN (07:53)
[2022-08-18] MEDS ORDERED: Acetaminophen 325 MG Tab PO PRN (07:53)
[2022-08-18] MEDS ORDERED: Sodium Chloride 0.9% 2.5 ML Syringe FLUSH PRN (07:53)
[2022-08-18] MEDS ORDERED: Ondansetron 4 MG/2 ML SDV IVPUSH PRN (07:53)
[2022-08-18] MEDS ORDERED: [UNRECOGNIZED DRUG - OTHER] PO SCH (09:45)
[2022-08-18] MEDS: Sulfamethoxazole/Trimethoprim 800-160 MG Tab PO SCH (10:53)
[2022-08-18] MEDS: Fluconazole 100 MG Tab PO SCH (10:53)
[2022-08-18 12:18] LABS: HEMATOCRIT 24.9 % (38.0-50.0); HEMOGLOBIN 8.2 g/dL (13.0-17.0)
[2022-08-18 12:44] LABS: CALCIUM 8.1 mg/dL (8.5-10.1); CARBON DIOXIDE,CO2 23.4 mmol/L (21.0-32.0); CREATININE 1.1 mg/dL (0.8-1.3); EST CRCL DRUG DOSING (CG) 73.61 mL/min
[2022-08-18] MEDS ORDERED: Calcium Carbonate 500 MG Tab.Chew PO PRN (13:50)
[2022-08-18] MEDS ORDERED: Pantoprazole 40 MG in Sodium Chloride 0.9% 10 ML IVPUSH ONE (13:50)
[2022-08-18 18:32] LABS: CALCIUM 7.6 mg/dL (8.5-10.1); CARBON DIOXIDE,CO2 22.2 mmol/L (21.0-32.0); EST CRCL DRUG DOSING (CG) 80.97 mL/min; POTASSIUM,K 3.8 mmol/L (3.5-5.1)
[2022-08-19 01:34] LABS: CALCIUM 7.7 mg/dL (8.5-10.1); EST CRCL DRUG DOSING (CG) 80.97 mL/min; POTASSIUM,K 3.4 mmol/L (3.5-5.1)
[2022-08-19] MEDS: Sodium Chloride 0.9% 1,000 ML IV SCH (02:45)
[2022-08-19] MEDS: Pantoprazole 40 MG Tab.CR PO SCH (06:37)
[2022-08-19] MEDS: metroNIDAZOLE/Normal Saline 500 MG in Premix Bag 1 BAG IV SCH (06:38)
[2022-08-19 06:47] LABS: ALBUMIN 1.5 g/dL (3.4-5.0); BILIRUBIN TOTAL 0.5 mg/dL (0.2-1.0); CALCIUM 7.7 mg/dL (8.5-10.1); CARBON DIOXIDE,CO2 21.9 mmol/L (21.0-32.0); EST CRCL DRUG DOSING (CG) 80.97 mL/min; MAGNESIUM 1.5 mg/dL (1.8-2.4); POTASSIUM,K 3.4 mmol/L (3.5-5.1); PROTEIN TOTAL,TP 5.8 g/dL (6.4-8.2)
[2022-08-19 06:51] LABS: HEMOGLOBIN 6.8 g/dL (13.0-17.0); MEAN CORPUSCULAR HEMOGLOBIN 26.2 pg (27.0-32.0); MEAN CORPUSCULAR VOLUME 76.9 fL (80.0-98.0); NRBC ABSOLUTE 0 K/uL; PLATELET COUNT,PLT 75 K/uL (150-400); WHITE BLOOD CELL COUNT,WBC 1.89 K/uL (4.0-11.0)
[2022-08-19 06:52] LABS: A/G RATIO 0.4 (0.9-1.6)
[2022-08-19 07:12] LABS: BAND ABSOLUTE MAN 0.4; BAND PERCENT MAN 20 %; EOSINOPHILS PERCENT MAN 1 % (0.0-7.0); LYMPHOCYTES ABSOLUTE MAN 0.2 (0.6-2.4); LYMPHOCYTES PERCENT MAN 10 % (16.0-40.0); MONOCYTES ABSOLUTE MAN 0.4 (0.0-0.8); MONOCYTES PERCENT MAN 20 % (0.0-15.0); SEG NEUTROPHILS ABSOLUTE MAN 0.9 (1.4-5.7); SEG NEUTROPHILS PERCENT MAN 49 % (48.0-80.0)
[2022-08-19] MEDS ORDERED: Magnesium Sulfate/Water 4 GM in Premix Bag 1 BAG IV ONE (07:47)
[2022-08-19] MEDS ORDERED: Potassium Chloride 20 MEQ Tab.ER PO ONE (07:48)
[2022-08-19 08:37] LABS: RED BLOOD CELL COUNT 2.59 M/uL (4.50-5.90); RETICULOCYTE COUNT PERCENT 1.1 % (0.5-1.5)
[2022-08-19 08:47] LABS: FOLIC ACID 13.8 ng/mL (8.60-58.90)
[2022-08-19 08:54] LABS: PERCENT FE SATURATION 16.53 % (20-55); TRANSFERRIN 84.7
[2022-08-19] MEDS: Sulfamethoxazole/Trimethoprim 800-160 MG Tab PO SCH (09:17)
[2022-08-19] MEDS: Fluconazole 100 MG Tab PO SCH (09:18)
[2022-08-19] MEDS ORDERED: Sodium Ferric Gluconate Cmplex 125 MG in Sodium Chloride 0.9% 100 ML IV ONE ×2 (10:45→12:30)
[2022-08-19] MEDS: Ciprofloxacin in D5W 400 MG in Premix Bag 1 BAG IV SCH ×2 (11:28)
[2022-08-19] MEDS: Hydrocortisone 1% Crm 30 GM Tube TOP PRN ×2 (16:05→16:48)
[2022-08-20] MEDS: Pantoprazole 40 MG Tab.CR PO SCH ×2 (06:21→06:32)
[2022-08-20 06:37] LABS: HEMOGLOBIN 7.8 g/dL (13.0-17.0); MEAN CORPUSCULAR HEMOGLOBIN 25.6 pg (27.0-32.0); MEAN CORPUSCULAR HGB CONC 33.9 g/dL (31.0-37.0); MEAN CORPUSCULAR VOLUME 75.4 fL (80.0-98.0); NRBC ABSOLUTE 0 K/uL; PLATELET COUNT,PLT 77 K/uL (150-400); RED BLOOD CELL COUNT 3.05 M/uL (4.50-5.90); WHITE BLOOD CELL COUNT,WBC 3.78 K/uL (4.0-11.0)
[2022-08-20 07:07] LABS: ALBUMIN 1.6 g/dL (3.4-5.0); BILIRUBIN TOTAL 0.5 mg/dL (0.2-1.0); CALCIUM 7.6 mg/dL (8.5-10.1); CARBON DIOXIDE,CO2 22.3 mmol/L (21.0-32.0); CREATININE 0.9 mg/dL (0.8-1.3); EST CRCL DRUG DOSING (CG) 89.96 mL/min; PROTEIN TOTAL,TP 6.2 g/dL (6.4-8.2)
[2022-08-20 07:13] LABS: A/G RATIO 0.4 (0.9-1.6)
[2022-08-20] MEDS ORDERED: Magnesium Sulfate/Water 2 GM in Premix Bag 1 BAG IV ONE (08:06)
[2022-08-20 08:22] LABS: BAND ABSOLUTE MAN 0.1; BAND PERCENT MAN 3 %; BASOPHILS PERCENT MAN 1 % (0.0-1.5); EOSINOPHILS PERCENT MAN 1 % (0.0-7.0); LYMPHOCYTES ABSOLUTE MAN 0.2 (0.6-2.4); LYMPHOCYTES PERCENT MAN 5 % (16.0-40.0); METAMYELOCYTE ABSOLUTE MAN 0; METAMYELOCYTE PERCENT MAN 1 %; MONOCYTES ABSOLUTE MAN 0.8 (0.0-0.8); MONOCYTES PERCENT MAN 20 % (0.0-15.0); MYELOCYTE ABSOLUTE MAN 0; MYELOCYTE PERCENT MAN 1 %; SEG NEUTROPHILS ABSOLUTE MAN 2.6 (1.4-5.7); SEG NEUTROPHILS PERCENT MAN 68 % (48.0-80.0)
[2022-08-20 08:23] LABS: PLATELET COUNT ESTIMATE DECREASED
[2022-08-20] MEDS: Fluconazole 100 MG Tab PO SCH (09:26)
[2022-08-20] MEDS: Sulfamethoxazole/Trimethoprim 800-160 MG Tab PO SCH (09:27)
[2022-08-20] MEDS: Sodium Chloride 1 GM Tab PO SCH ×2 (12:53→20:02)
[2022-08-20] MEDS: Hydrocortisone 1% Crm 30 GM Tube TOP PRN ×2 (13:07→23:03)
[2022-08-21 06:16] LABS: BASOPHILS PERCENT AUTO 0.3 % (0.0-1.5); EOSINOPHILS PERCENT AUTO 0.8 % (0.0-7.0); HEMATOCRIT 25.1 % (38.0-50.0); HEMOGLOBIN 8.7 g/dL (13.0-17.0); LYMPHOCYTES ABSOLUTE AUTO 0.9 K/uL (0.6-2.4); LYMPHOCYTES PERCENT AUTO 23.7 % (16.0-40.0); MEAN CORPUSCULAR HEMOGLOBIN 26.1 pg (27.0-32.0); MEAN CORPUSCULAR HGB CONC 34.7 g/dL (31.0-37.0); MEAN CORPUSCULAR VOLUME 75.4 fL (80.0-98.0); MONOCYTES ABSOLUTE AUTO 0.8 K/uL (0.0-0.8); MONOCYTES PERCENT AUTO 22.3 % (0.0-15.0); NEUTROPHILS PERCENT AUTO 52.9 % (48.0-80.0); NRBC ABSOLUTE 0 K/uL; RED BLOOD CELL COUNT 3.33 M/uL (4.50-5.90); WHITE BLOOD CELL COUNT,WBC 3.72 K/uL (4.0-11.0)
[2022-08-21 06:41] LABS: CALCIUM 8.1 mg/dL (8.5-10.1); CARBON DIOXIDE,CO2 22.9 mmol/L (21.0-32.0); CREATININE 0.9 mg/dL (0.8-1.3); EST CRCL DRUG DOSING (CG) 89.96 mL/min; POTASSIUM,K 3.9 mmol/L (3.5-5.1)
[2022-08-21] MEDS: Pantoprazole 40 MG Tab.CR PO SCH (06:44)
[2022-08-21 07:24] LABS: PLATELET COUNT,PLT 104 K/uL (150-400)
[2022-08-21] MEDS: Fluconazole 100 MG Tab PO SCH (09:41)
[2022-08-21] MEDS: Sodium Chloride 1 GM Tab PO SCH (09:44)
[2022-08-21] MEDS: Sulfamethoxazole/Trimethoprim 800-160 MG Tab PO SCH (09:45)
== END 2022-08-21 10:40 | disposition home or self-care (01) | DRG 641 ==
LOC: MW.ED 15:02 → MW.MS 19:40 → OBSVTOIN 08-20 11:41 → MW.MS 08-20 12:34
PROVIDERS: ADMIT Internal Medicine; ATTEND Internal Medicine
DX: E87.1 Hypo-osmolality and hyponatremia (principal); B20 Human immunodeficiency virus [HIV] disease; G93.49 Other encephalopathy; D69.6 Thrombocytopenia, unspecified; K80.20 Calculus of gallbladder without cholecystitis without obstruction; D64.9 Anemia, unspecified; Z59.00 Homelessness unspecified; Z79.899 Other long term (current) drug therapy
CPT/HCPCS: 36415; 36430; 71045; 71045-26; 74177; 74177-26; 76700; 76700-26; 80048; 80053; 81001; 82607; 82728; 82746; 83550; 83605; 83690; 83735; 83935; 84300; 85014; 85018; 85025; 85045; 85610; 85730; 86308; 86850; 86900; 86901; 86920; 87040; 93005; 96361; 96365; 96366; 96367; 96368; 96374; 96375; 99285-25; A9270-GY; C9113; G0378; J0692; J0744; J2916; J3475; J3490; J7030; P9016; Q9967